=== PATIENT | female | born 1985 | race American Indian/Alaskan Native ===

== ENCOUNTER 2018-08-03 18:18 | Emergency (ER) | payer OTHER ==
[2018-08-03 19:33] VITALS: BP 126/73
--- NOTE | 2018-08-03 19:50 | Emergency Department Report ---
ED Lower Extremity HPI - General Chief Complaint: Extremity Injury, Lower Stated Complaint: RIGHT ANKLE/LEFT KNEE PAIN Time Seen by Provider: 08/03/18 19:48 Source: patient Mode of arrival: Ambulatory Limitations: No Limitations - History of Present Illness MD Complaint: knee injury, ankle injury -: Sudden Injury: Knee: Left, Ankle: Right, Foot: Right Type of Injury: inversion Place: work (stepped on pallet an foot slipped between the grooves causing a twisting motion and left knee twisted causing swelling and pain) Improves With: nothing, immobilization Worsens With: weight bearing Context: other Associated Symptoms: swelling, numbness, able to partially bear weight, ambulatory - Related Data Allergies Allergy/AdvReac Type Severity Reaction Status Date / Time No Known Allergies Allergy Unverified 08/03/18 19:33 ED Review of Systems ROS: Stated complaint: RIGHT ANKLE/LEFT KNEE PAIN Other details as noted in HPI Constitutional: denies: chills, fever Eyes: denies: eye pain, eye discharge, vision change ENT: denies: ear pain, throat pain Respiratory: denies: cough, shortness of breath, wheezing Cardiovascular: denies: chest pain, palpitations Endocrine: no symptoms reported Gastrointestinal: denies: abdominal pain, nausea, diarrhea Genitourinary: denies: urgency, dysuria, discharge Musculoskeletal: joint swelling, arthralgia. denies: back pain Skin: denies: rash, lesions Neurological: denies: headache, weakness, paresthesias Psychiatric: denies: anxiety, depression Hematological/Lymphatic: denies: easy bleeding, easy bruising ED Past Medical Hx - Past Medical History Previous Medical History?: Yes Additional medical history: Chronic left knee pain. Chronic right ankle pain. - Surgical History Additional Surgical History: Multiple surgeries with hardware in both right ankle and left knee. - Social History Smoking Status: Current Every Day Smoker Substance Use Type: None ED Physical Exam - General Limitations: No Limitations General appearance: alert, in no apparent distress - Head Head exam: Present: atraumatic, normocephalic - Eye Eye exam: Present: normal appearance, PERRL, EOMI Pupils: Present: normal accommodation - ENT ENT exam: Present: mucous membranes moist - Neck Neck exam: Present: normal inspection - Respiratory Respiratory exam: Present: normal lung sounds bilaterally. Absent: respiratory distress - Cardiovascular Cardiovascular Exam: Present: regular rate, normal rhythm. Absent: systolic murmur, diastolic murmur, rubs, gallop - GI/Abdominal GI/Abdominal exam: Present: soft, normal bowel sounds - Extremities Exam Extremities exam: Present: normal inspection, tenderness, normal capillary refill (pulses 2+ foot warm), joint swelling, other (pain to left knee with palpation to l ateral aspect. normal varus and valgus . normal drawer test.) - Back Exam Back exam: Present: normal inspection - Neurological Exam Neurological exam: Present: alert, oriented X3 - Psychiatric Psychiatric exam: Present: normal affect, normal mood - Skin Skin exam: Present: warm, dry, intact, normal color. Absent: rash ED Course Vital Signs 08/03/18 19:27 Temperature 98.5 F Pulse Rate 104 H Respiratory 16 Rate Blood Pressure 126/73 O2 Sat by Pulse 100 Oximetry ED Lower Extremity MDM - Radiology Data Radiology results: pending (patient was tired of waiting signed out AMA) - Medical Decision Making 32-year-old female twisted her ankle at work had a pre-existing fracture was repaired by internal fixation several years ago. States that she is very tearful when I was first ankle. 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 States that the ankle has been numb since the twisting accident. Since then has noted minimal pain. X-rays were taken. The patient waiting for the official results. O2 sats on and the risk, as planned on going to Critical care attestation.: If time is entered above; I have spent that time in minutes in the direct care of this critically ill patient, excluding procedure time. ED Disposition Clinical Impression: Ankle pain, right Disposition: DC-07 LEFT AGAINST MED ADVICE Is pt being admited?: No Does the pt Need Aspirin: No Condition: Undetermined Referrals: JOELLE WOOD MD [Primary Care Provider] - 3-5 Days Forms: AMA Form
[2018-08-03] MEDS ORDERED: NORCO 5/325 PO ONE (21:03)
[2018-08-03] MEDS ORDERED: NORCO 5/325 ONE (21:05)
--- NOTE | 2018-08-03 21:49 | XRay Report ---
FINAL REPORT PROCEDURE: Left knee. TECHNIQUE: Three views. HISTORY: Left knee pain. COMPARISON: No prior studies are available for comparison. FINDINGS: There is internal fixation hardware in the proximal tibia. There is some irregularity of the lateral tibial plateau. There are no acute fractures. The soft tissues are unremarkable. There is no evidence of a knee effusion. IMPRESSION: No evidence of acute injury.
--- NOTE | 2018-08-03 21:52 | XRay Report ---
FINAL REPORT PROCEDURE: Right foot. TECHNIQUE: AP and lateral views. HISTORY: Patient fell today, right foot pain. COMPARISON: No prior studies are available for comparison. FINDINGS: There is a prosthetic ankle joint in place. The remaining bones appear intact. The joint spaces appea r normal. The soft tissues are unremarkable. IMPRESSION: Ankle prosthesis. No evidence of fracture.
--- NOTE | 2018-08-03 23:39 | XRay Report ---
FINAL REPORT PROCEDURE: Right ankle. TECHNIQUE: Three views. HISTORY: Right ankle pain, fell today. COMPARISON: No prior studies are available for comparison. FINDINGS: There is an ankle prosthesis in place. There is a lateral plate an internal fixation screws on the di stal fibula. The fracture has healed. There are no new fractures identified. The soft tissues are unr emarkable. IMPRESSION: No evidence of an acute fracture.
== END 2018-08-03 22:34 | disposition left against medical advice (07) ==
LOC: ED 18:18
DX: M25.562 Pain in left knee (principal); M25.571 Pain in right ankle and joints of right foot; F17.200 Nicotine dependence, unspecified, uncomplicated
CPT/HCPCS: 99283